=== PATIENT | female | born 1985 | race Caucasian/White ===

== ENCOUNTER → 2018-06-11 | Outpatient (CLI) | payer OTHER ==
[2014-06-29 15:40] VITALS: BP 128/85
[~2018-06-11] MED LIST: BUPR150T8 PO; IBUP-1060 PO; LISI-334 PO; SERT100T PO; TRAM50TA PO
--- NOTE | 2018-06-11 08:43 | KCIC ---
Ultrasound pelvis complete 06/11/2018 CLINICAL INDICATION: Pelvic pain. COMPARISON: CT abdomen and pelvis 07/27/2013 FINDINGS: Transabdominal images were obtained. Uterus measures 10.2 x 5.7 x 4.6 cm. Endometrium is normal and dual thickness measuring 6 mm. Right ovary measures 3.0 x 1.3 x 2.2 cm with normal color Doppler imaging. There are few right ovarian follicles. Left ovary measures 2.8 x 1.8 x 2.2 cm with scattered physiologic follicles and normal color Doppler imaging. No significant pelvic free fluid. IMPRESSION: Unremarkable pelvic sonogram. Electronically signed by: Tex Rodriguez MD (06/11/2018 8:39 AM) [facility]
== END | disposition home or self-care (01) ==
LOC: KCIC US 07:28
PROVIDERS: ATTEND Nurse Practitioner Family
DX: R10.2 Pelvic and perineal pain (principal)
CPT/HCPCS: 76856

== ENCOUNTER → 2019-12-18 | Outpatient (CLI) | payer OTHER ==
[2014-06-29 15:40] VITALS: BP 128/85
[~2019-12-18] MED LIST changes: +CETI10TA24 PO; +ERGO500027 PO; +MONT10TA49 PO; +vitamin d
[2019-12-18 13:22] LABS: BILIRUBIN,URINE NEGATIVE (NEG); CLARITY,URINE CLEAR; COLOR,URINE YELLOW; NITRITE,URINE NEGATIVE (NEG); PROTEIN,URINE NEGATIVE (NEG-TRACE); UROBILINOGEN,URINE 0.2 mg/dL (0.2 mg/dL)
[2019-12-18 13:22] LABS: BASO # 0.1 x10^3/uL (0.0-0.2); BASO % 1 % (0-3); EOS # 0.1 x10^3/uL (0.0-0.7); EOS % 1 % (0-3); HEMATOCRIT 40.2 % (36.0-47.0); HEMOGLOBIN 14.1 g/dL (12.0-15.5); LYMPH # 2.3 x10^3/uL (1.0-4.8); LYMPH % 28 % (24-48); MEAN CORPUSCULAR HEMOGLOBIN 31 pg (25-35); MEAN CORPUSCULAR HGB CONC 35 g/dL (31-37); MEAN CORPUSCULAR VOLUME 88 fL (79-100); MONO # 0.4 x10^3/uL (0.0-1.1); MONO % 5 % (0-9); NEUT # 5.3 x10^3/uL (1.8-7.7); NEUT % 65 % (31-73); PLATELET COUNT 249 x10^3/uL (140-400); RED BLOOD COUNT 4.57 x10^6/uL (3.50-5.40); WHITE BLOOD COUNT 8.2 x10^3/uL (4.0-11.0)
[2019-12-18 13:35] LABS: SQUAMOUS EPITHELIAL CELL,UR MANY /LPF
[2019-12-18 13:36] LABS: BACTERIA,URINE MANY /HPF (0-FEW)
[2019-12-18 13:41] LABS: ALBUMIN 3.9 g/dL (3.4-5.0); ALBUMIN/GLOBULIN RATIO 0.9 (1.0-1.7); CALCIUM 9.3 mg/dL (8.5-10.1); CREATININE 0.8 mg/dL (0.6-1.0); GFR 82.1; POTASSIUM 3.4 mmol/L (3.5-5.1); TOTAL BILIRUBIN 0.5 mg/dL (0.2-1.0); TOTAL PROTEIN 8.2 g/dL (6.4-8.2)
--- NOTE | 2019-12-18 13:53 | EKG ---
[facility] [address] [place] [address] Test Date: 2019-12-18 Test Time: 13:43:39 Pat Name: RASHEED WATERS Department: Room: Gender: F Rn Lvn: MR HARRELLB: 1985 Requested By: SAM BENAVIDEZ Order Number: [id number] Reading MD: Tunde Nelson MD Measurements Intervals Ilion Rate: 93 P: 22 WY: 136 QRS: 38 QRSD: 82 T: 41 QT: 366 QTc: 458 Interpretive Statements SINUS RHYTHM Electronically Signed On 12-22-2019 8:03:53 CDT by Tunde Nelson MD
--- NOTE | 2019-12-18 15:10 | RAD ---
Two-view chest dated 12/18/2019. No comparison available. Clinical data indication: Preop evaluation for hysterectomy. FINDINGS: PA and lateral views obtained. Heart and mediastinal contours within normal limits. Lungs are clear. No consolidation or pleural effusion. No pneumothorax. IMPRESSION: No acute radiographic abnormality. Electronically signed by: Krishna Sneed MD (12/18/2019 3:06 PM) [facility]
--- NOTE | 2019-12-22 08:50 | NUR ---
Faxed pretesting results to Dr Horner's office.
== END ==
LOC: SURGPAT 12:50
PROVIDERS: ATTEND Obstetrics & Gynecology
DX: Z01.818 Encounter for other preprocedural examination (principal); Z11.59 Encounter for screening for other viral diseases; I10 Essential (primary) hypertension; N92.0 Excessive and frequent menstruation with regular cycle; N85.2 Hypertrophy of uterus
CPT/HCPCS: 36415; 71046; 80053; 81001; 85025; 87086; 93005; U0003

== ENCOUNTER 2019-12-23 06:16 | Observation (INO) | payer OTHER ==
[2019-12-23] VITALS (11 sets, daily range): BP systolic 88–112; BP diastolic 54–74
[~2019-12-23] VITALS: Ht 162.6 cm; Wt 86.9 kg
[2019-12-23] MEDS ORDERED: fentaNYL PF VIAL 100 MCG/2 ML VIAL IV PRN (07:00)
[2019-12-23] MEDS ORDERED: PROCHLORPERAZINE 10 MG/2 ML VIAL. IV PRN (07:00)
[2019-12-23] MEDS ORDERED: MORPHINE SULFATE 2 MG/ML VIAL. IV PRN ×2 (07:00→12:30)
[2019-12-23] MEDS ORDERED: HYDROmorphone 2 MG/ML VIAL IV PRN (07:00)
[2019-12-23] MEDS ORDERED: ONDANSETRON PF 4 MG/2 ML VIAL. IV PRN ×2 (07:00→12:30)
[2019-12-23] MEDS ORDERED: MIDAZOLAM HCL/PF 2 MG/2 ML VIAL. ONE (08:29)
[2019-12-23] MEDS ORDERED: ROCURONIUM 50 MG/5 ML VIAL. ONE (08:29)
[2019-12-23] MEDS ORDERED: fentaNYL PF VIAL 100 MCG/2 ML VIAL ONE ×2 (08:29→12:39)
[2019-12-23] MEDS ORDERED: SEVOFLURANE 61 TO 120 MINUTES. IH ONE (08:30)
[2019-12-23] MEDS ORDERED: DEXAMETHASONE SOD PHOS 4 MG/ML VIAL ONE (08:30)
[2019-12-23] MEDS ORDERED: KETOROLAC 30 MG/ML VIAL. ONE (08:30)
[2019-12-23] MEDS ORDERED: PROPOFOL 10 MG/ML (20ML) VIAL. IV ONE (08:30)
[2019-12-23] MEDS ORDERED: ONDANSETRON PF 4 MG/2 ML VIAL. ONE (08:30)
[2019-12-23] MEDS ORDERED: LIDOCAINE 2% PF 5 ML VIAL. ONE (08:30)
[2019-12-23] MEDS: IV RINGERS,LACTATED 1000ML 1,000 ML IV SCH ×2 (08:50→12:59)
[2019-12-23] MEDS ORDERED: SCOPOLAMINE 1.5MG PATCH. TD ONE ×2 (09:00→09:15)
[2019-12-23] MEDS ORDERED: ESTROGENS, CONJ VAGINAL CREAM 30GM TUBE. ONE (09:51)
[2019-12-23] MEDS ORDERED: INDIGOTINDISULFONATE SODIUM 40 MG/5 ML AMPUL. ONE (09:51)
[2019-12-23] MEDS ORDERED: BUPIVACAINE-EPI 0.25%-1:200000 MPF 30 ML VIAL. ONE (09:51)
[2019-12-23] MEDS ORDERED: PHENYLEPHRINE in 0.9% NACL PF 1 MG/10 ML SYRINGE. IV ONE (10:27)
[2019-12-23] MEDS ORDERED: NEOSTIGMINE METHYLSULFATE 5 MG/5 ML SYRINGE. ONE (10:49)
--- NOTE | 2019-12-23 12:27 | PDOC ---
BRIEF OPERATIVE NOTE Date: Dec 23, 2019 Pre-Op Diagnosis menorrhagia, right sided pelvic pain Post-Op Diagnosis same, enlarged uterus Procedure Performed LAVH/RSO/left salpingectomy Surgeon Dr. Claire Horner Strap Folding Machine Operator SHRUTI Motta Anesthesiologist Dr. Stacy Anesthesia Type: General Blood Loss 200cc IV Fluid 1500cc Urine Output 350cc clear via marrero Specimens Obtained cervix, uterus, right tube and ovary, left tube Findings enlarged RV uterus, small cyst on right ovary, normal left tube and ovary Complications none Operative Note [id number] CLAIRE HORNER MD Dec 23, 2019 12:27
[2019-12-23] MEDS ORDERED: 0.9 % SODIUM CHLORIDE 10 ML DISP.SYRIN. IV PRN (12:30)
[2019-12-23] MEDS ORDERED: ZOLPIDEM 5 MG TABLET. PO PRN (12:30)
[2019-12-23] MEDS ORDERED: MAGNESIUM HYDROXIDE 2,400 MG/30 ML ORAL.SUSP. PO PRN (12:30)
[2019-12-23] MEDS ORDERED: CALCIUM CARBONATE 500 MG TAB.CHEW PO PRN (12:30)
[2019-12-23] MEDS ORDERED: MAG HYDROX/ALUMINUM HYD/SIMETH 30 ML ORAL.SUSP PO PRN (12:30)
[2019-12-23] MEDS ORDERED: LACTULOSE 20 GM/30 ML SOLUTION. PO PRN (12:30)
[2019-12-23] MEDS ORDERED: NALOXONE 0.4 MG/ML VIAL. IV PRN (12:30)
[2019-12-23] MEDS ORDERED: oxyCODONE/APAP 5/325 1 TAB TABLET PO PRN (12:30)
[2019-12-23] MEDS ORDERED: SIMETHICONE 80 MG TAB.CHEW PO PRN (12:30)
[2019-12-23] MEDS ORDERED: PROCHLORPERAZINE 10 MG/2 ML VIAL. ONE (12:39)
[2019-12-23] MEDS: fentaNYL PF VIAL 100 MCG/2 ML VIAL IV PRN ×2 (13:00→13:36)
--- NOTE | 2019-12-23 14:38 | OP ---
DATE OF SURGERY: 12/23/2019 PREOPERATIVE DIAGNOSES: Menorrhagia with right-sided pelvic pain. POSTOPERATIVE DIAGNOSES: Menorrhagia with right-sided pelvic pain with an enlarged retroverted uterus. PROCEDURE: Laparoscopic-assisted vaginal hysterectomy, right salpingo-oophorectomy, left salpingectomy. SURGEON: Sam Horner MD SALES AGENT FINANCIAL REPORT SERVICE: SHRUTI Lunsford ANESTHESIOLOGIST: Griffin Stacy MD ANESTHESIA: General. ESTIMATED BLOOD LOSS: 200 mL. URINE OUTPUT: 350 mL clear via Purvis catheter. INTRAVENOUS FLUIDS: 1500 mL of crystalloid. SPECIMEN REMOVED: Cervix, uterus, right tube and ovary, left tube. FINDINGS: An enlarged retroverted uterus, normal bilateral tubes and small cyst on the right ovary, normal left ovary. COMPLICATIONS: None. DESCRIPTION OF PROCEDURE: This patient was taken to the operating room where general anesthesia was placed. The patient was placed in dorsal lithotomy position in [facility]. The patient's abdomen and vagina were both prepped and draped in the normal sterile fashion and a Purvis catheter had been inserted under sterile technique. Upon my arrival, a timeout was performed. Once everyone agreed on the patient, the site, the procedure, the antibiotics, the procedure was initiated. A bivalve speculum was placed in the patient's vagina. A single-tooth tenaculum was used to grasp the anterior lip of the cervix. 12 mL of 0.25% Marcaine with epinephrine was used to circumferentially inject around the cervix for both hemodissection and hemostatic purposes later. The Valtchev uterine manipulator was then placed through the endocervical os, locked on the single tooth tenaculum and the bivalve speculum was then removed. Top gloves were discarded and changed. Attention was then turned to the abdomen where a small supraumbilical skin incision was made with the scalpel. A curved Brenda was used to dissect through the subcuticular layer to the fascia. The 5 mm Visiport was used to directly into the abdominal cavity. Opening patient pressure was 5 mmHg. Direct abdominal placement was confirmed via the laparoscope. Carbon dioxide gas was used to appropriately insufflate the abdominal cavity to maintain a pressure of 15 mmHg. The patient was placed in Trendelenburg position. Right and left lower quadrant ports were placed, finding an area clear on the inside, which it all was transilluminating the abdominal wall, finding an area clear of any vasculature, making a small incision and placing the trocar under direct visualization, then insufflating 4-5 mL of air in the trocar cuff. This was done on the right and left. The camera was moved laterally to look at the umbilical port. Once it was in and clear, it was also insufflated with the 4-5 mL of air on the trocar cuff. At this point, the procedure was initiated. The left tube and ovary were elevated. There were adhesions on the left side, covering where the ureter was crossing over the IP. So the adhesions had to be taken down on the left side to identify the ureter. It was found low. The left side, we were leaving a normal ovary, so we went above the ovary, below the tube and just did a salpingectomy on the left across to the left round ligament. All of this was done with the LigaSure, cauterizing and cutting and then the left utero-ovarian pedicle was obtained as well. On the right side, the tube and ovary were elevated. This is where she always had ovulation and chronic pain and desired that side out. We found the ureter immediately coursing low. PROCEDURE: Hysterectomy on the right side, the tube and ovary were elevated. She wished to have this one out. The ureter was seen coursing low in the pelvis, crossing high on the infundibulopelvic ligament, taking the right tube and ovary, cauterizing and cutting with the LigaSure, going over, getting the round ligament on the right side. The bladder flap was started sharply on this side as well. Using the [place] to elevate and the monopolar hook to cut across, the bladder flap was created and then gently pull down. On the right side, the uterine vessels were obtained by crossing once the bladder was down and obtaining the vessels. Then going back to the left side, once that bladder was down, getting the vessels and staying vertical, hugging the cervix, going through the cardinal and broad ligaments. The uterus and cervix staying inside that initial pedicle getting the vasculature and going down to the uterosacral freeing up the entire left side. The uterus was blanched. I did a few more bites on the right side, staying inside that initial uterine pedicle, but not going quite as low on the right side, but pushing cephalad on the uterus, the whole way stretching it out and making sure the bladder was down. Once this was done and the uterus was completely free and it was blanched, all instruments were removed from the abdomen and attention was turned vaginally. The single tooth and Valtchev were removed. A weighted speculum was placed in the vagina. Thyroid Brook clamps were placed on the anterior and posterior lips of the cervix respectively. A scalpel was used to make a circumferential incision in the cervix. An open Ray-Philipp 4 x 4 was used to gently push up the anterior bladder peritoneum and the anterior cul-de-sac was digitally and bluntly entered. The Ray-Philipp was taken out and removed and the curved Cornish was placed in the anterior cul-de-sac. Cervix was elevated. The posterior cul-de-sac was sharply entered with curved Guzman scissors. A #0 Vicryl stitch was used to secure the posterior peritoneum here to the vaginal cuff and tagging it with a curved Brenda clamp and cutting and passing the needle off. The short weighted vaginal speculum was removed and replaced with the long Karen speculum in the posterior cul-de-sac. Curved Mehrdad clamps x 2 were placed on the patient's left uterosacral ligament where they were doubly clamped with curved Heaneys, cut with curved Guzman scissors and suture ligated x 2 with 0 Vicryl. Second one was taken through the vaginal cuff securing uterosacral ligament to the vaginal cuff, tagging it with a straight Brenda clamp and cutting and passing the needle off. This was done exactly the same on the right side, double clamping the uterosacrals with curved Mehrdad's, cutting with curved Guzman scissors, suture ligating x 2 with 0 Vicryl, taking the second one through the vaginal cuff, tagging it with a straight Brenda clamp and cutting and passing the needle off. The remaining pedicle on the right side was delineated with the curved mixture at the right angle clamp and the vaginal LigaSure was used to cauterize and cut the remaining pedicle on the right side. This was done exactly the same on the left. Once all the pedicles were done and free, the cervix, uterus, left tube and right tube and ovary were delivered in total and passed off for permanent pathology. The anterior bladder peritoneum was identified and grasped with a long Allis. There was found to be some bleeding on the right side near the uterosacral ligament. It was grasped with a burlisher. It was cauterized and then stitched as well both with excellent results. There was no more bleeding. There was some clotting in the cul-de-sac, you could see and I am sure this is where it was coming from that pedicle. Once we got that pedicle, it was completely dry. I could see up inside and it looked good. So once that was done, the long Karen speculum was removed and replaced with the short weighted vaginal speculum in the posterior cul-de-sac. A 2-0 Vicryl was taken through the anterior bladder peritoneum, left uterosacral ligament, posterior peritoneum and right uterosacral ligament, thus closing the peritoneum in a pursestring like fashion. Once this was done, the right and left uterosacral tags were clipped and passed off. The cuff was closed in an anterior to posterior running locked fashion with a full length 2-0 Vicryl and it was tied to that posterior cuff tag. It looked completely hemostatic and good. So at this point, all gloves were discarded and changed, instruments had been correct and counted x 2 by OR personnel and a second look was taken above. A second look above revealed complete hemostasis. Copious irrigation revealed clear fluid. Tisseel was placed over the cuff the right and left lower quadrant ports were. The balloons were deflated on the trocars and they were removed under direct visualization. The cuff remained hemostatic. It was looked at again. The cuff was deflated on the umbilical port. Gas was released from this port. Once it was out, it was removed as well. All three port sites were closed with 4-0 nylon at the skin and injected with 12 mL of local. The patient was then awakened from anesthesia and is currently being brought to recovery room in stable condition. SAM HORNER MD DR: DIONICIO/dangelo JOB#: [id number] / [id number]
[2019-12-23] MEDS: HYDROcodone/APAP 5/325MG 1 TAB TABLET PO PRN ×3 (14:57→20:34)
[2019-12-23] MEDS: KETOROLAC 30 MG/ML VIAL. IVP PRN (17:27)
[2019-12-24] MEDS: HYDROcodone/APAP 5/325MG 1 TAB TABLET PO PRN ×3 (00:21→08:17)
[2019-12-24] MEDS: KETOROLAC 30 MG/ML VIAL. IVP PRN ×2 (00:22→06:24)
[2019-12-24 04:20] VITALS: BP 110/68
[2019-12-24 09:19] LABS: CALCIUM 8.1 mg/dL (8.5-10.1); CREATININE 0.9 mg/dL (0.6-1.0); GFR 71.7; POTASSIUM 3.4 mmol/L (3.5-5.1)
--- NOTE | 2019-12-24 11:33 | PDOC ---
SURGICAL PROGRESS NOTE DATE: 12/24/19 TIME: 11:28 Subjective Saw pt this am and she was up in [facility] on the phone doing well. States ate whole breakfast without n/v. Voiding without catheter, scant VB and +flatus. Vital Signs Vital Signs Date Time Temp Pulse Resp B/P (MAP) Pulse Ox O2 Delivery O2 Flow Rate FiO2 12/24/19 08:17 18 Room Air 12/24/19 04:20 98.6 68 110/68 (82) 98 98.6 12/23/19 13:00 10.0 I&O Intake and Output 12/24/19 07:00 Intake Total 2350 ml Output Total 1351 ml Balance 999 ml Intake IV Total 2350 ml Output Urine Total 1251 ml Estimated Blood Loss 100 ml # Voids 1 PATIENT HAS A KAMARA: No General: Alert, Oriented X3, Cooperative, No acute distress Heart: Regular rate Abdomen: Soft, No tenderness, Other (all port sites c/d/i) Extremities: No clubbing, No cyanosis, No edema Skin: No rashes, No breakdown, No significant lesion Neuro: Normal speech Psych/Mental Status: Mental status NL, Mood NL Labs Laboratory Tests Test 12/23/19 08:42 12/24/19 08:40 Bedside Urine HCG, Qualitative Hcg negative (Negative) Hematocrit 33.4 % (36.0-47.0) Sodium Level 140 mmol/L (136-145) Potassium Level 3.4 mmol/L (3.5-5.1) Chloride Level 105 mmol/L (98-107) Carbon Dioxide Level 26 mmol/L (21-32) Anion Gap 9 (6-14) Blood Urea Nitrogen 5 mg/dL (7-20) Creatinine 0.9 mg/dL (0.6-1.0) Estimated GFR (Cockcroft-Gault) 71.7 Glucose Level 94 mg/dL (70-99) Calcium Level 8.1 mg/dL (8.5-10.1) Laboratory Tests Test 12/24/19 08:40 Hematocrit 33.4 % (36.0-47.0) Sodium Level 140 mmol/L (136-145) Potassium Level 3.4 mmol/L (3.5-5.1) Chloride Level 105 mmol/L (98-107) Carbon Dioxide Level 26 mmol/L (21-32) Anion Gap 9 (6-14) Blood Urea Nitrogen 5 mg/dL (7-20) Creatinine 0.9 mg/dL (0.6-1.0) Estimated GFR (Cockcroft-Gault) 71.7 Glucose Level 94 mg/dL (70-99) Calcium Level 8.1 mg/dL (8.5-10.1) I have reviewed the following labs, vitals, nursing Cardiovascular: HTN Pulmonary: No pertinent hx GI: No pertinent hx Heme/Onc: No pertinent hx Psych: No pertinent hx Assessment/Plan POD#1 s/p LAVH/RSO/left salpingectomy Routine PO care AF VSS dc to home later today NPV x 6 weeks light/limited activity x 2 weeks keep scheduled follow up in one week as scheduled already has pain pills at home ok for OTC ibuprofen as needed NO driving on pain meds call or return sooner for any other questions or concerns not limited to but including pain unrelieved with pain meds, increased or unexplained vaginal bleeding or T>100.4 Justicifation of Admission Dx: Justifications for Admission: Justification of Admission Dx: Yes SAM BENAVIDEZ MD Dec 24, 2019 11:33
--- NOTE | 2019-12-24 11:35 | PDOC3 ---
Discharge Summary Visit Information Date of Admission: Dec 23, 2019 Date of Discharge: Dec 24, 2019 Admitting Diagnosis Comment: pelvic pain, menorrhagia Final Diagnosis same Brief Hospital Course Allergies Allergies Coded Allergies Type Severity Reaction Last Updated Verified Sulfa (Sulfonamide Antibiotics) Allergy Intermediate Hives 12/24/19 Yes adhesive tape Allergy Intermediate Rash 12/24/19 Yes brompheniramine Allergy Intermediate RASH 12/23/19 Yes ciprofloxacin Allergy Intermediate Hives 12/24/19 Yes phenylpropanolamine Allergy Intermediate RASH 12/23/19 Yes Vital Signs Vital Signs Date Time Temp Pulse Resp B/P (MAP) Pulse Ox O2 Delivery O2 Flow Rate FiO2 12/24/19 08:17 18 Room Air 12/24/19 04:20 98.6 68 110/68 (82) 98 98.6 12/23/19 13:00 10.0 Lab Results Laboratory Tests Test 12/23/19 08:42 12/24/19 08:40 Bedside Urine HCG, Qualitative Hcg negative (Negative) Hematocrit 33.4 % (36.0-47.0) Sodium Level 140 mmol/L (136-145) Potassium Level 3.4 mmol/L (3.5-5.1) Chloride Level 105 mmol/L (98-107) Carbon Dioxide Level 26 mmol/L (21-32) Anion Gap 9 (6-14) Blood Urea Nitrogen 5 mg/dL (7-20) Creatinine 0.9 mg/dL (0.6-1.0) Estimated GFR (Cockcroft-Gault) 71.7 Glucose Level 94 mg/dL (70-99) Calcium Level 8.1 mg/dL (8.5-10.1) Laboratory Tests Test 12/24/19 08:40 Hematocrit 33.4 % (36.0-47.0) Sodium Level 140 mmol/L (136-145) Potassium Level 3.4 mmol/L (3.5-5.1) Chloride Level 105 mmol/L (98-107) Carbon Dioxide Level 26 mmol/L (21-32) Anion Gap 9 (6-14) Blood Urea Nitrogen 5 mg/dL (7-20) Creatinine 0.9 mg/dL (0.6-1.0) Estimated GFR (Cockcroft-Gault) 71.7 Glucose Level 94 mg/dL (70-99) Calcium Level 8.1 mg/dL (8.5-10.1) Brief Hospital Course Ms. Roman is a 34 old female who presented with right sided pelvic pain and menorrhagia with mildly enlarged uterus. She underwent and LAVH/RSO/left salpingectomy yesterday without complication. She has had an unremarkable postoperative course. She has been AFVSS, scant VB, voiding without catheter, tolerating regular diet and desiring to go home. Assessment Assessment POD#1 s/p LAVH/RSO/left salpingectomy Routine PO care AF VSS dc to home later today NPV x 6 weeks light/limited activity x 2 weeks keep scheduled follow up in one week as scheduled already has pain pills at home ok for OTC ibuprofen as needed NO driving on pain meds call or return sooner for any other questions or concerns not limited to but including pain unrelieved with pain meds, increased or unexplained vaginal bleeding or T>100.4 Discharge Information Condition at Discharge: Stable Follow Up: Weeks Disposition/Orders: D/C to Home Scheduled Cetirizine Hcl (Zyrtec) 10 Mg Tablet, 1 TAB PO DAILY for allergies, #30 Ref 2 (Reported) Entered as Reported by: LUCRECIA WRIGHT on 12/18/19 1311 Ergocalciferol (Vitamin D2) (Vitamin D2) 1,250 Mcg Capsule, 50,000 MCG PO WEEKLY for supplement, (Reported) Entered as Reported by: LUCRECIA WRIGHT on 12/18/19 1310 Lisinopril (Lisinopril) 20 Mg Tablet, 20 MG PO HS, (Reported) Entered as Reported by: BARON BELL on 07/27/13 1123 Last Taken: Unknown Dose on 12/22/19 Last Action: Last Taken Edited on 12/23/19 0849 by JACQUE BURNS Montelukast Sodium (Singulair Tablet ) 10 Mg Tablet, 10 MG PO HS for FOR ASTHMA, Ref 0 (Reported) Entered as Reported by: LUCRECIA WRIGHT on 12/18/19 1307 Discontinued Medications Bupropion Hcl (Wellbutrin Sr) 150 Mg Tablet.er, 150 MG PO HS, (Reported) Entered as Reported by: MARCELINA MARSH on 09/02/13 1523 Ibuprofen (Ibuprofen) 800 Mg Tablet, 800 MG PO PRN TID PRN for PAIN, (Reported) Entered as Reported by: MARCELINA MARSH on 09/02/13 1525 Tramadol Hcl (Tramadol Hcl) 50 Mg Tablet, 50 MG PO PRN BID, (Reported) Entered as Reported by: BARON BELL on 07/27/13 1123 [vitamin d] , (Reported) Entered as Reported by: LUCRECIA WRIGHT on 12/18/19 1310 Patient Instructions Patient Instructions POD#1 s/p LAVH/RSO/left salpingectomy Routine PO care AF VSS dc to home later today NPV x 6 weeks light/limited activity x 2 weeks keep scheduled follow up in one week as scheduled already has pain pills at home ok for OTC ibuprofen as needed NO driving on pain meds call or return sooner for any other questions or concerns not limited to but including pain unrelieved with pain meds, increased or unexplained vaginal bleeding or T>100.4 Justicifation of Admission Dx: Justifications for Admission: Justification of Admission Dx: Yes SAM BENAVIDEZ MD Dec 24, 2019 11:35
[2019-12-24 12:00] VITALS: BP 111/80
--- NOTE | 2019-12-24 12:15 | NUR ---
Discharge and follow up instructions reviewed and given to pt. Pt denied questions or concerns at this time. Pt taken out of the hospital per W/C to her husbands car.
--- NOTE | 2019-12-25 16:07 | PATHOLOGY ---
[facility] Accession Number: [id number] . 01 Material submitted: . uterus - CERVIX, UTERUS, RIGHT FALLOIAN TUBE AND OVARY, LEFT FALLOPIAN TUBE . 01 Clinical history: . Dysmenorrhea, menorrhagia . 02 Diagnosis: Uterus with attached right fallopian tube and ovary and left fallopian tube, laparoscopic assisted vaginal hysterectomy with bilateral salpingectomy and right oophorectomy: - Adenomyosis, uterine corpus, sub-basal. - Squamous metaplasia, cervix, focal. - Nabothian cysts and endocervical gland tunnel cluster, cervix. - Weakly proliferative endometrium. - Intramural leiomyoma, uterine corpus, measuring 0.9 cm. - Myometrial hypertrophy (uterine weight 186 grams). - Congestion of bilateral fallopian tubes. - Cystic follicles of right ovary, multiple. (JPM/db; 12/25/2019) LBQ 12/25/2019 1552 Local . 02 Comment: There is no atypia or evidence of malignancy. . 02 Electronically signed: . Mando Pretty MD, Pathologist NPI- [id number] . 01 Gross description: . The specimen is received in formalin labeled "Leda Abel, cervix, uterus, right fallopian tube, right ovary, left fallopian tube". Received is a 186 g, 10.2 x 7.3 x 5.4 cm uterus with attached cervix, attached left fallopian tube weighing 4 g, and attached right adnexa weighing 15 g. The uterine serosa is pink-alfaro to pink-sr, smooth and glistening in appearance. The 1.4 cm cervical os is surrounded by pink-aflaro, smooth to slightly disrupted ectocervical mucosa. The uterus is oriented using the peritoneal reflection and the anterior paracervical margin is inked black. The uterus is opened laterally to reveal a pink-alfaro endocervical canal measuring 2.7 cm in length. The endometrial cavity is triangular measuring 5.3 cm in length by 3.9 cm in width. The endometrium is pale alfaro, glistening to slightly hemorrhagic in appearance and measures 0.1 cm in thickness. Serial sectioning reveals a alfaro-pink, trabeculated myometrium measuring up to 2.8 cm in thickness displaying a single intramural nodule measuring 0.9 cm in maximum dimensions. . The left fimbriated fallopian tube measures 7.5 cm in length by up to 0.8 cm in diameter. Sectioning reveals a patent lumen. . The right adnexa consists of a fimbriated fallopian tube measuring 8.3 cm in length by up to 1.0 cm in diameter attached to a 3.4 x 2.0 x 2.0 cm ovary. Sectioning through the fallopian tube reveals a pinpoint to patent lumen and the fallopian tube appears grossly unremarkable. Sectioning through the ovary reveals multiple cystic structures ranging in size from 0.3 to 0.7 cm filled with blood-tinged fluid. The remainder of the specimen displays corporeal lutea ranging in size from 0.2 to 1.0 cm. The specimen is submitted representatively as follows: . A1 12:00 cervix A2 6:00 cervix A3 anterior endomyometrium A4 posterior endomyometrium A5 intramural nodule, bisected A6 left fallopian tube A7-A8 right adnexa. (CAA; 12/24/2019) [facility] 12/24/2019 1230 Local . 02 Pathologist provided ICD-10: N80.0, N87.9, N88.8, N85.9, D25.1, N83.01 . 02 CPT . 244821 Specimen Comment: Report sent to Performed at: 01 [facility] [address], [place], [place] [id number] MD Antonio Downey MD Phone: [phone] Performed at: 02 [facility] [address] [place], [place] [id number] MD Mando Pretty MD Phone: [phone]
== END 2019-12-24 12:15 | disposition home or self-care (01) ==
LOC: SURG 06:16 → 3 NORTH 12:36
PROVIDERS: ADMIT Obstetrics & Gynecology; ATTEND Obstetrics & Gynecology
DX: N92.0 Excessive and frequent menstruation with regular cycle (principal); I10 Essential (primary) hypertension; N85.4 Malposition of uterus; N85.2 Hypertrophy of uterus; R10.2 Pelvic and perineal pain
CPT/HCPCS: 36415; 58552; 80048; 81025; 85014; 86850; 86900; 86901; 96361; 96374; 96376; A7015; G0378; G0379; J0690; J0780; J1100; J1885; J2250; J2370; J2405; J2704; J2710; J3010; J3480; J3490; J7030; J7120